=== PATIENT | female | born 1970 | race Caucasian/White ===

== ENCOUNTER 2021-02-06 08:30 | Outpatient (REF) | payer OTHER, SELFPAY ==
[2021-02-07 08:59] LABS: BV Int Neg Control Negative (Negative); BV Int Pos Control Positive (Positive)
[2021-02-07 09:47] LABS: C. trachomatis RNA TMA NOT DETECTED (NOT DETECTED); N. gonorrhoeae RNA TMA NOT DETECTED (NOT DETECTED)
== END 2021-02-06 08:31 | disposition home or self-care (01) ==
LOC: HO.LAB 08:30
PROVIDERS: Visit Provider Advanced Practice Midwife
DX: Z20.2 Contact with and (suspected) exposure to infections with a predominantly sexual mode of transmission (principal); N89.8 Other specified noninflammatory disorders of vagina; F17.210 Nicotine dependence, cigarettes, uncomplicated
CPT/HCPCS: 36415; 87480; 87491; 87510; 87591; 87660; 99202

== ENCOUNTER 2021-04-14 10:53 | Emergency (ER) | payer OTHER, SELFPAY ==
[2021-04-14 10:55] VITALS: BP 120/86; PULSE 112; RESP 20; TEMP 36.8; O2SAT 95; BMI 29.2
--- NOTE | 2021-04-14 11:48 | ED.SKABFB ---
HPI - Skin/Abscess/Foreign Bdy General Chief complaint: Skin/Abscess/Foreign Body Stated complaint: personal Time Seen by Provider: 04/14/21 11:30 Source: patient Mode of arrival: ambulatory Limitations: no limitations History of Present Illness HPI narrative: 50 y/o female presenting with raised, red blistering type rash on her bilateral legs that started about 4 days ago after doing yardwork outside. She states the rash is extremely itchy and uncomfortable. It is preventing her from sleeping at night. She has tried multiple over the counter meds without any relief. The rash started on her shins and has spread to behind her knees and thighs. She has no fever or chills. No SOB or wheezing. No facial involvement. MD complaint: rash Onset (ago): day(s) (4) Tetanus up to date: yes Location: LLE and RLE Severity: moderate Severity scale (1-10): 9 Quality: burning and pruritic Pain Consistency: constant Relieving factors: cold therapy Exacerbating factors: none Context: other (being outside) Associated symptoms: itching Treatments prior to arrival: OTC topical medication and Benadryl Related Data Home Medications Medication Instructions Recorded Confirmed atorvastatin 10 mg tablet 10 mg PO DAILY 02/06/21 baclofen 10 mg tablet 10 mg PO TID 02/06/21 fluticasone propionate 110 2 puff INHALATION BID 02/06/21 mcg/actuation HFA aerosol inhaler gabapentin 400 mg capsule 0 mg PO 02/06/21 hydrochlorothiazide 12.5 mg capsule 12.5 mg PO DAILY 02/06/21 losartan 50 mg tablet 50 mg PO DAILY 02/06/21 melatonin 3 mg tablet 0 mg PO 02/06/21 zolpidem 10 mg tablet 10 mg PO BEDTIME PRN 02/06/21 Previous Rx's Medication Instructions Recorded valacyclovir 1 gram tablet 1,000 mg PO DAILY #90 tab 02/06/21 diphenhydramine HCl [Benadryl 25 mg PO TID PRN #20 tab 04/14/21 Allergy] prednisone 10 mg PO PER PKG DIR #48 ea 04/14/21 Allergies Allergy/AdvReac Type Severity Reaction Status Date / Time latex [LATEX] Allergy Unknown RASH Verified 02/06/21 09:52 meperidine [From DEMEROL] Allergy Unknown DOES NOT Verified 03/09/21 09:52 WORK morphine [MORPHINE] Allergy Unknown DOES NOT Verified 02/06/21 09:52 LIKE THE WAY IT MAKES HER FEEL Review of Systems Review of Systems: Constitutional: No Fever, No Chills Eyes: No Eye Pain, No Swelling, No Redness Cardiovascular: No Chest Pain, No SOB Respiratory: No Cough, No Sputum, No Wheezing Gastrointestinal: No Nausea, No Vomiting, No Diarrhea, No abdominal Pain Genitourinary: No Dysuria, No Urinary Frequency, No Hematuria Musculoskeletal: No joint pain, No Myalgias Skin: + Skin Lesions, + rash Neuro: No Weakness, No Numbness, No Dizziness, No Headache Psych: + Anxiety/Panic Heme/Lymph: No Bruising, No Lymphadenopathy PMFSH Past Medical History Attestation statement: The following information was validated with the patient. Medical History Anxiety Asthma Bipolar 1 disorder Depression HTN (hypertension) PTSD (post-traumatic stress disorder) Recovering alcoholic Vaginal lesion Surgical History (Updated 02/06/21 @ 09:54 by MARLA Zamudio) Hx of tubal ligation Family History Family History (Updated 02/06/21 @ 09:55 by MARLA Zamudio) Maternal Grandmother Colon cancer Paternal Grandmother Uterine cancer Social History Social History (Updated 02/06/21 @ 09:56 by MARLA Zamudio) Alcohol intake: current Alcohol intake frequency: a few times a month Smoking Status: Current some day smoker Tobacco Type: Cigarette Packs Per Day: 1.5 Advance Directives: Yes Advance Directives Information Provided: Yes Advance Directives on File: No Patient : No Gender identity: female Physical Exam Vital Signs: Vital Signs: Last Vital Signs Temp 98.2 F 04/14/21 10:55 Pulse 112 H 04/14/21 10:55 Resp 20 04/14/21 10:55 BP 120/86 04/14/21 10:55 Pulse Ox 95 04/14/21 10:55 Body Mass Index 29.2 Appearance: Alert. Oriented X3. No acute distress. HEENT: normal inspection CVS: Normal heart rate and rhythm. Pulses normal. Respiratory: No respiratory distress. Skin: Skin warm and dry. Normal skin color. Normal skin turgor. Extremities: bilateral lower extremities with scattered erythematous raised blisters on lower legs, behind the knees and under right thigh, tender to touch, clear drainage from some. no surrounding erythema or warmth. Neuro: Oriented X 3. No motor deficit. No sensory deficit. Course Course Course Narrative: 50 y/o female presenting with ithcy, red rash on LE x4 days, spreading. Exam and clinical presentation consistent with allergic dermatitis due to poison chantelle. Will treat with prednisone taper. She was counseled on management and is stable for d/c home. She has appointment with her doc next week. Critical Care Time Critical Care Time Critical Care Time: No Discharge Plan Discharge Clinical Impression: Allergic dermatitis due to poison [place] Patient Disposition: Home, Self-Care Instructions: Poison [place] (ED) Additional Instructions: Take the prescribed prednisone taper as directed. Start taking tomorrow - you were given 1st dose today in the ER. Take Bandryl 50 mg every 6 hours as needed for itching. You can try topical Benadryl spray or Calamine lotion as well. Do your best not to itch - use cold compresses to help prevent itching. If you have worsening symptoms come back to the ER for further evaluation. Prescriptions: New prednisone 10 mg tablets,dose pack 10 mg PO PER PKG DIR Qty: 48 RF: 0 diphenhydramine HCl [Benadryl Allergy] 25 mg tablet 25 mg PO TID PRN (Reason: itching) Qty: 20 RF: 0 No Action atorvastatin 10 mg tablet 10 mg PO DAILY RF: 0 zolpidem 10 mg tablet 10 mg PO BEDTIME PRNRF: 0 melatonin 3 mg tablet 0 mg PO RF: 0 gabapentin 400 mg capsule 0 mg PO RF: 0 hydrochlorothiazide 12.5 mg capsule 12.5 mg PO DAILY RF: 0 Flovent HFA 110 mcg/actuation HFA aerosol inhaler 2 puff inhalation BID RF: 0 losartan 50 mg tablet 50 mg PO DAILY RF: 0 baclofen 10 mg tablet 10 mg PO TID RF: 0 valacyclovir 1 gram tablet 1,000 mg PO DAILY Qty: 90 RF: 4
[2021-04-14] MEDS: predniSONE 20 MG TABLET 60 MG PO (11:58)
== END 2021-04-14 12:04 | disposition home or self-care (01) ==
PROVIDERS: Emergency Provider Emergency Medicine Emergency Medical Services; PCP Internal Medicine
DX: L23.7 Allergic contact dermatitis due to plants, except food (principal); I10 Essential (primary) hypertension; F17.210 Nicotine dependence, cigarettes, uncomplicated
CPT/HCPCS: 99283